=== PATIENT | female | born 1965 | race Caucasian/White ===

== ENCOUNTER 2017-01-21 18:11 | Emergency (ER) | payer OTHER ==
[2017-01-21 19:02] LABS: BASO % 0.6 % (0.1-1.2); EOS # 0.1 10_X3_uL (0.0-0.4); EOS % 2.2 % (0.7-5.8); GRAN # 2.8 10_X3_uL (1.6-6.1); GRAN % 56.4 % (34.0-71.1); HEMATOCRIT 39.9 % (34-45); HEMOGLOBIN 13.9 g/dL (11.2-15.7); LYMPH # 1.6 10_X3_uL (1.2-3.7); LYMPH % 31.3 % (19.3-51.7); MEAN CORPUSCULAR HEMOGLOBIN 31.4 pg (27.0-33.0); MEAN CORPUSCULAR HGB CONC 34.8 g/dL (32.0-36.0); MEAN CORPUSCULAR VOLUME 90.1 fL (79-95); MONO # 0.5 10_X3_uL (0.2-0.9); MONO % 9.5 % (4.7-12.5); PLATELET COUNT 185 x10_3/uL (182-369); RED BLOOD COUNT 4.43 x10_6/uL (3.9-5.2); RED CELL DISTRIBUTION WIDTH 13.2 % (11.7-14.4)
[2017-01-21 19:18] LABS: ALBUMIN 4.3 gm/dL (3.4-5.0); ALKALINE PHOSPHATASE 91 U/L (50-136); ALT/SGPT 16 U/L (3.5-33.9); AST/SGOT 20 U/L (7.04-26.96); BILIRUBIN,TOTAL 0.38 mg/dL (0.0-1.0); BLOOD UREA NITROGEN 10 mg/dL (7-18); CALCIUM 9.4 mg/dL (8.7-10.7); CARBON DIOXIDE 28 mmol/L (21-32); CREATININE 0.6 mg/dL (0.6-1.3); GLUCOSE,RANDOM 98 mg/dL (70-99); LIPASE 43 U/L (6.75-60.75); POTASSIUM 4.2 mmol/L (3.5-5.1); SODIUM 142 mmol/L (136-145); TOTAL PROTEIN 7.4 gm/dL (6.4-8.2)
== END 2017-01-21 21:04 | disposition home or self-care (01) ==
LOC: ER 18:11
PROVIDERS: General Practice
DX: R07.81 Pleurodynia (principal); Z79.899 Other long term (current) drug therapy; Z79.02 Long term (current) use of antithrombotics/antiplatelets
CPT/HCPCS: 36415; 71100; 80053; 83690; 85025; 99283-25

== ENCOUNTER 2017-05-17 09:56 | Emergency (ER) | payer OTHER ==
[2017-05-17 10:38] LABS: BASO % 0.6 % (0.1-1.2); EOS # 0.1 10_X3_uL (0.0-0.4); EOS % 2.2 % (0.7-5.8); GRAN # 3.1 10_X3_uL (1.6-6.1); GRAN % 63.4 % (34.0-71.1); HEMATOCRIT 40.6 % (34-45); HEMOGLOBIN 13.6 g/dL (11.2-15.7); LYMPH # 1.3 10_X3_uL (1.2-3.7); LYMPH % 25.7 % (19.3-51.7); MEAN CORPUSCULAR HEMOGLOBIN 30.7 pg (27.0-33.0); MEAN CORPUSCULAR HGB CONC 33.5 g/dL (32.0-36.0); MEAN CORPUSCULAR VOLUME 91.6 fL (79-95); MEAN PLATELET VOLUME 11.6 fl (7.5-11.5); MONO # 0.4 10_X3_uL (0.2-0.9); MONO % 8.1 % (4.7-12.5); PLATELET COUNT 161 x10_3/uL (182-369); RED BLOOD COUNT 4.43 x10_6/uL (3.9-5.2)
[2017-05-17 10:51] LABS: ALBUMIN 4.2 gm/dL (3.4-5.0); ALKALINE PHOSPHATASE 76 U/L (50-136); ALT/SGPT 24 U/L (3.5-33.9); AST/SGOT 26 U/L (7.04-26.96); BILIRUBIN,TOTAL 0.52 mg/dL (0.0-1.0); BLOOD UREA NITROGEN 12 mg/dL (7-18); CALCIUM 9.6 mg/dL (8.7-10.7); CARBON DIOXIDE 27 mmol/L (21-32); CREATINE KINASE 45 U/L (21-215); CREATININE 0.6 mg/dL (0.6-1.3); GLUCOSE,RANDOM 120 mg/dL (70-99); POTASSIUM 4.3 mmol/L (3.5-5.1); SODIUM 139 mmol/L (136-145); TOTAL PROTEIN 6.7 gm/dL (6.4-8.2)
== END 2017-05-17 11:55 | disposition home or self-care (01) ==
LOC: ER 09:56
PROVIDERS: Family Medicine
DX: J44.1 Chronic obstructive pulmonary disease with (acute) exacerbation (principal); R00.1 Bradycardia, unspecified; R60.0 Localized edema; M79.606 Pain in leg, unspecified; I11.0 Hypertensive heart disease with heart failure; I50.9 Heart failure, unspecified; Z95.1 Presence of aortocoronary bypass graft; Z95.5 Presence of coronary angioplasty implant and graft; Z98.51 Tubal ligation status; Z79.899 Other long term (current) drug therapy
CPT/HCPCS: 36415; 71020; 80053; 82550; 82553; 83880; 85025; 93005; 99285-25